=== PATIENT | female | born 1965 | race Caucasian/White ===

== ENCOUNTER 2020-03-23 13:49 | Outpatient (REF) | payer SELFPAY | END 2020-03-23 13:50 | disposition home or self-care (01) | LOC: HO.SCI 13:49 | DX: Z13.89 Encounter for screening for other disorder (principal) ==

== ENCOUNTER 2021-05-11 13:44 | Emergency (ER) | payer OTHER, BC, SELFPAY ==
--- NOTE | ~2021-05-11 | XR_ITS ---
EXAMINATION: XR PELVIS CLINICAL INFORMATION: Back and bilateral groin pain. COMPARISON: None TECHNIQUE: AP view of the pelvis. FINDINGS: The bones and soft tissues are normal. No fracture. Sacroiliac and hip joints are normal. Pubic symphysis is normal. No abnormal soft tissue calcifications. XR/XR pelvis 1-2V IMPRESSION: Normal pelvis.
--- NOTE | ~2021-05-11 | XR_ITS ---
EXAMINATION: XR LUMBOSACRAL SPINE CLINICAL INFORMATION: Back inj COMPARISON: None TECHNIQUE: Three views of the lumbosacral spine. FINDINGS: 5 nonrib-bearing lumbar-type vertebral bodies. No acute visible fracture or dislocation. Very slight dextrocurvature of the thoracolumbar junction. Minimal multilevel degenerative changes with disc space narrowing and osteophyte formation. Vertebral body heights and disc spaces are otherwise maintained. Posterior elements are intact. Paraspinal soft tissues are unremarkable. Moderate fecal loading throughout the colon. XR/XR lumbar spine 2-3V IMPRESSION: 1. No acute visible fracture or dislocation. 2. Very slight dextrocurvature of the thoracolumbar junction. 3. Minimal multilevel degenerative changes.
[2021-05-11 14:29] VITALS: BP 99/63; PULSE 65; RESP 18; TEMP 36.9; O2SAT 100; BMI 30.2
--- NOTE | 2021-05-11 16:50 | ED_ITS ---
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 She reports a mechanical slip and fall on the ice at 7:30 a.m. this morning, landing on her buttocks. Denies any any head strike, or loss of consciousness. She reports pain to her left lower back /left upper buttock. Pain radiates to bilateral groins, and down her left leg to her calf and down the right leg to her foot. There is associated numbness tingling to her left buttock. Denies past history of back pain. or personal history of cancer. Denies fevers, chills, urinary frequency/ urgency, bladder bowel dysfunction, numbness or tingling of the perineum. MD complaint: fall Onset (ago): hour(s) Fall from: standing Fall witnessed: no Place fall occurred: home Loss of consciousness: none Prolonged down time: no Symptoms prior to fall: none Context: tripped/slipped Location of injury: back and buttocks Severity: severe Severity scale (1-10): 10 Quality: stabbing and aching Associated symptoms (after fall): denies, headache, neck pain, unable to walk, lightheaded and confusion Related Data Allergies Allergy/AdvReac Type Severity Reaction Status Date / Time No Known Allergies Allergy Verified 05/11/21 16:49 Review of Systems Review of Systems: Constitutional: No weight loss, fever, chills, weakness or fatigue. Cardiovascular: No chest pain, chest pressure or chest discomfort. No palpitations or pedal edema. Respiratory: No shortness of breath, cough or sputum production. Gastrointestinal: No anorexia, nausea, vomiting or diarrhea. No abdominal pain or blood in stool. Genitourinary: No burning micturition. No urinary frequency or incontinence. Neurologic: + numbness and tingling left buttock. No headache, dizziness, syncope, unilateral weakness, ataxia. No change in bowel or bladder control. No saddle anesthesia Musculoskeletal + lower back pain radiating to bilateral legs and groin. No muscle pain,, joint pain or stiffness. Psychiatric:No depression or anxiety. . Yes all other systems are reviewed and are negative PMFSH Past Medical History Attestation statement: The following information was validated with the patient. Source: old records reviewed Social History Social History Advance Directives: No Advance Directives Information Provided: No Patient : No Physical Exam Vital Signs: Vital Signs: Last Vital Signs Temp 98.5 F 05/11/21 14:29 Pulse 65 05/11/21 14:29 Resp 18 05/11/21 14:29 BP 99/63 05/11/21 14:29 Pulse Ox 100 05/11/21 14:29 BMI result Body Mass Index 30.2 Vital signs have been reviewed as normal and appeared to be correct. Blood pressure normal.? Heart rate normal.? Respiration rate normal. Temperature normal.? Oxygen saturation normal. Appearance: Alert.? Oriented X3.? No acute distress.?? Eyes: Pupils equal, round and reactive to light.?? ENT: Pharynx normal.?? Neck: Normal inspection.? Neck supple.?? CVS: Normal heart rate and rhythm.? Pulses normal.?? Respiratory: No respiratory distress.? Breath sounds normal.?? Abdomen: Soft and nontender.?? Skin: Skin warm and dry.? Normal skin color.? Normal skin turgor.?? Extremities: + straight leg test. No lower extremity edema.? No calf ttp. Ambulatory with a slow steady gait. Neuro: Oriented X 3.? No motor deficit.? No sensory deficit. Course Course Course Narrative: Patient is a 56-year-old female with no past medical history presenting to emergency department for evaluation of left lower back and left buttock pain after mechanical slip and fall. Patient to have x-ray imaging Toradol for pain. Disposition pending results. Reevaluation(s) Reevaluation #1: Patient reports improvement in her pain to 5/ 10 after receiving Toradol. X-ray of the lumbar spine and pelvis without any indication of fracture. Pain consistent with lumbar radiculopathy. Patient to be discharged home with ibuprofen/Tylenol. Follow-up instructions reviewed. Time: 18:30 MDM - Fall Medical Records Attestation: I reviewed the patient's medical records. Lab Data Attestation: I reviewed the patient's lab results. Imaging Data Lumbar Spine x-ray: Attestation: I personally reviewed and interpreted this imaging study as follows: Radiologist's impression: IMPRESSION: 1.? No acute visible fracture or dislocation. 2.? Very slight dextrocurvature of the thoracolumbar junction. 3.? Minimal multilevel degenerative changes. Pelvis x-ray: Attestation: I personally reviewed and interpreted this imaging study as follows: Radiologist's impression: IMPRESSION: Normal pelvis. Discharge Plan Discharge Clinical Impression: Acute lumbar radiculopathy Fall Qualifiers: Encounter type: initial encounter Qualified Code(s): W19.XXXA - Unspecified fall, initial encounter Patient Disposition: Home, Self-Care Instructions: Lumbar Radiculopathy (ED) Additional Instructions: You were evaluated the emergency department for your left lower back left buttock pain after a fall the ice. the x-ray of your lower back and pelvis were overall normal, there are no broken bones. You do have some mild degenerative changes in your lower back, this is a long-term problem, not related to your fall. you can use ibuprofen and Tylenol as needed for pain, you can apply ice to your lower back and buttock for 2-3 days, followed by heat. Please be sure to do some gentle stretching of your back to aide in relief. please return to ED for anyone worsening symptoms or concerns, and arrange for a new primary care provider. Stand Alone Forms: Work/School Release Interventions: ED Discharge Assessment Last Done: 05/11/21 19:24 Discharge Date/Time: 05/11/21 19:24 Print Language: Montenegrin
[2021-05-11] MEDS: Ketorolac Tromethamine 30 MG/ML VIAL IM (16:58)
== END 2021-05-11 19:24 | disposition home or self-care (01) ==
PROVIDERS: Emergency Provider Emergency Medicine
DX: Z04.3 Encounter for examination and observation following other accident (principal); M54.16 Radiculopathy, lumbar region; M54.50 Low back pain, unspecified
CPT/HCPCS: 72100; 72170; 96372; 99283; 99284; J1885